=== PATIENT | male | born 1995 | race Two or more races ===

== ENCOUNTER → 2024-05-21 14:01 | Outpatient (BNVA) | payer OTHER, SELFPAY | PROVIDERS: Visit Provider Registered Nurse | DX: S61.412A Laceration without foreign body of left hand, initial encounter (principal); W26.9XXA Contact with unspecified sharp object(s), initial encounter; Z23 Encounter for immunization | CPT/HCPCS: 12002; 90715; 99204 ==

== ENCOUNTER → 2024-05-23 15:05 | Outpatient (BNVA) | payer OTHER, SELFPAY | PROVIDERS: Visit Provider Physician Assistant Medical | DX: S61.412A Laceration without foreign body of left hand, initial encounter (principal); W26.9XXA Contact with unspecified sharp object(s), initial encounter; R60.9 Edema, unspecified | CPT/HCPCS: 99213 ==